=== PATIENT | female | born 1990 | race Caucasian/White ===

== ENCOUNTER 2016-07-22 11:27 | Inpatient (IN) | payer MEDICAID, OTHER ==
[2016-07-22] MEDS ORDERED: HYDROCODONE/ACETAMINOPHEN 5-325 MG TABLET PO ONE (12:09)
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
[2016-07-22] MEDS ORDERED: MORPHINE SULFATE 10 MG/ML INJ IV ONE ×2 (13:27→14:22)
[2016-07-22] MEDS ORDERED: ONDANSETRON HCL INJ/PF 4 MG/2 ML SDV IV ONE (14:22)
[2016-07-22] MEDS ORDERED: OXYCODONE-ACETAMINOPHEN 5-325 MG TABLET PO ONE (16:20)
[2016-07-22] MEDS ORDERED: DEXTROSE 40% GEL 15 GM TUBE PO PRN ×2 (17:18)
[2016-07-22] MEDS ORDERED: DEXTROSE 50%-WATER 25 GM/50 ML DISP.SYRIN IV PRN ×2 (17:18)
[2016-07-22] MEDS ORDERED: NORMAL SALINE 1000 ML 1,000 ML IV PRN (17:18)
[2016-07-22] MEDS ORDERED: GLUCAGON,HUMAN RECOMB 1 MG INJ SUBCUT PRN (17:18)
[2016-07-22] MEDS ORDERED: HYDROMORPHONE HCL INJ/PF 2 MG/ML AMPULE IV PRN (17:22)
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
[2016-07-22] MEDS ORDERED: ACETAMINOPHEN 325 MG TABLET PO PRN (20:57)
[2016-07-22] MEDS: HYDROMORPHONE HCL INJ/PF 2 MG/ML AMPULE IV PRN (21:42)
[2016-07-22] MEDS: HEPARIN SOD (PORCINE) 5,000 UNIT/ML 1 ML SYRINGE SUBCUT SCH (21:46)
[2016-07-22] MEDS ORDERED: DOCUSATE SODIUM 100 MG CAPSULE PO ONE (23:00)
[2016-07-22] MEDS: KETOROLAC TROMETHAMINE INJ/PF 30 MG/1 ML SDV IV PRN (23:10)
[2016-07-23] MEDS: HYDROMORPHONE HCL INJ/PF 2 MG/ML AMPULE IV PRN ×4 (01:14→10:35)
[2016-07-23] MEDS ORDERED: RINGERS SOLUTION,LACTATED 1,000 ML IV PRN (04:49)
[2016-07-23] MEDS: KETOROLAC TROMETHAMINE INJ/PF 30 MG/1 ML SDV IV PRN (05:11)
[2016-07-23 07:10] LABS: ABSOLUTE BASOPHILS # (AUTO) 0.1 10^3/uL (0.0-0.2); ABSOLUTE EOSINOPHILS # (AUTO) 0.1 10^3/uL (0.0-0.6); ABSOLUTE LYMPHOCYTES (AUTO) 2.1 10^3/uL (0.5-4.7); ABSOLUTE MONOCYTES (AUTO) 0.8 10^3/uL (0.1-1.4); ABSOLUTE NEUT (AUTO) 6.5 10^3/uL (1.7-8.2); BASOPHILS % (AUTO) 0.7 % (0-2); EOSINOPHILS % (AUTO) 1.1 % (0-6); HEMATOCRIT 32.9 % (36.0-47.0); HEMOGLOBIN 11.3 g/dL (12.0-15.5); LYMPHOCYTES % (AUTO) 21.6 % (13-45); MEAN CORPUSCULAR HEMOGLOBIN 28.2 pg (27.0-33.4); MEAN CORPUSCULAR HGB CONC 34.3 g/dL (32.0-36.0); MEAN CORPUSCULAR VOLUME 82 fl (80-97); MONOCYTES % (AUTO) 8.9 % (3-13); RED CELL DISTRIBUTION WIDTH 13.4 % (11.5-14.0); SEGMENTED NEUTROPHILS % (AUTO) 67.7 % (42-78); WHITE BLOOD COUNT 9.6 10^3/uL (4.0-10.5)
[2016-07-23 07:29] LABS: ANION GAP 9 (5-19); BLOOD UREA NITROGEN 15 mg/dL (7-20); CALCIUM 8.9 mg/dL (8.4-10.2); CARBON DIOXIDE 24 mmol/L (22-30); CHLORIDE 107 mmol/L (98-107); CREATININE RESULT 0.65 mg/dL (0.52-1.25); GLUCOSE 101 mg/dL (75-110); POTASSIUM 4.2 mmol/L (3.6-5.0); SODIUM 140.3 mmol/L (137-145)
[2016-07-23] MEDS ORDERED: ONDANSETRON HCL INJ/PF 4 MG/2 ML SDV ONE (08:18)
[2016-07-23] MEDS ORDERED: LIDOCAINE 2% INJ-PF (20 MG/ML) 10 ML AMPUL ONE (08:18)
[2016-07-23] MEDS ORDERED: DEXAMETHASONE SOD PHOSPHATE INJ 4 MG/1 ML VIAL ONE (08:18)
[2016-07-23] MEDS ORDERED: PHENYLEPHRINE HCL INJ/PF 10 MG/1 ML SDV ONE (08:18)
[2016-07-23] MEDS ORDERED: GLYCOPYRROLATE INJ 0.4 MG/2 ML VIAL ONE (08:18)
[2016-07-23] MEDS ORDERED: ROCURONIUM BROMIDE INJ 50 MG/5 ML VIAL IV ONE (08:18)
[2016-07-23] MEDS ORDERED: SUCCINYLCHOLINE CHLORIDE INJ 200 MG/10 ML VIAL ONE (08:18)
[2016-07-23] MEDS ORDERED: NEOSTIGMINE METHYLSULFATE 10 MG/10 ML VIAL ONE (08:18)
[2016-07-23] MEDS: DOCUSATE SODIUM 100 MG CAPSULE PO SCH ×2 (09:37→17:04)
[2016-07-23] MEDS: HEPARIN SOD (PORCINE) 5,000 UNIT/ML 1 ML SYRINGE SUBCUT SCH ×2 (09:37→21:36)
[2016-07-23 11:39] LABS: URINE BARBITURATES SCREEN NEGATIVE; URINE METHADONE SCREEN NEGATIVE; URINE PHENCYCLIDINE SCREEN NEGATIVE
[2016-07-23 11:47] LABS: URINE OPIATES LOW UNCONFIRMED POSITIVE
[2016-07-23] MEDS ORDERED: HYDROMORPHONE HCL INJ/PF 2 MG/ML AMPULE ONE (12:01)
[2016-07-23] MEDS ORDERED: PROPOFOL INJ 200 MG/20 ML VIAL IV ONE (12:02)
[2016-07-23] MEDS ORDERED: MIDAZOLAM 2 MG/2 ML INJ ONE (12:02)
[2016-07-23] MEDS ORDERED: ACETAMINOPHEN 100 ML IV ONE (12:02)
[2016-07-23] MEDS ORDERED: FENTANYL CITRATE INJ/PF 100 MCG/2 ML AMPUL ONE (12:02)
[2016-07-23] MEDS ORDERED: CEFAZOLIN INJ 1 GM VIAL ONE (13:12)
[2016-07-23] MEDS ORDERED: BUPIVACAINE HCL 0.5%-EPI 1:200000 INJ/PF 30 ML VIAL ONE (13:17)
--- NOTE | 2016-07-23 13:24 | PDOC PROGRESS REPORT ---
Subjective Progress Note for:: 07/23/16 Subjective:: still complaining of pain alert and awake for OR today Physical Exam Vital Signs: Temp Pulse Resp BP Pulse Ox 98.4 F 101 H 16 123/65 96 07/23/16 08:03 07/23/16 08:03 07/23/16 08:03 07/23/16 08:03 07/23/16 08:03 Intake & Output 07/22/16 07/23/16 07/24/16 00:59 00:59 00:59 Intake Total 480 Output Total 600 Balance -120 General appearance: PRESENT: no acute distress, well-developed, well-nourished Head exam: PRESENT: atraumatic, normocephalic Eye exam: PRESENT: conjunctiva pink, EOMI, PERRLA. ABSENT: scleral icterus Ear exam: PRESENT: normal external ear exam Mouth exam: PRESENT: moist, tongue midline Neck exam: ABSENT: carotid bruit, JVD, lymphadenopathy, thyromegaly Respiratory exam: PRESENT: clear to auscultation brenda. ABSENT: rales, rhonchi, wheezes Cardiovascular exam: PRESENT: RRR. ABSENT: diastolic murmur, rubs, systolic murmur Pulses: PRESENT: normal dorsalis pedis pul Vascular exam: PRESENT: normal capillary refill GI/Abdominal exam: PRESENT: normal bowel sounds, soft. ABSENT: distended, guarding, mass, organolmegaly, rebound, tenderness Rectal exam: PRESENT: deferred Extremities exam: PRESENT: full ROM. ABSENT: calf tenderness, clubbing, pedal edema Musculoskeletal exam: PRESENT: other - left arm in sling Neurological exam: PRESENT: alert, awake, oriented to person, oriented to place , oriented to time, oriented to situation, CN II-XII grossly intact. ABSENT: motor sensory deficit Psychiatric exam: PRESENT: appropriate affect, normal mood. ABSENT: homicidal ideation, suicidal ideation Skin exam: PRESENT: dry, intact, warm. ABSENT: cyanosis, rash Results Laboratory Results: 07/23/16 05:53 07/23/16 05:53 07/23/16 07/23/16 05:53 05:53 WBC 9.6 RBC 4.00 Hgb 11.3 L Hct 32.9 L MCV 82 MCH 28.2 MCHC 34.3 RDW 13.4 Plt Count 273 Seg Neutrophils % 67.7 Lymphocytes % 21.6 Monocytes % 8.9 Eosinophils % 1.1 Basophils % 0.7 Absolute Neutrophils 6.5 Absolute Lymphocytes 2.1 Absolute Monocytes 0.8 Absolute Eosinophils 0.1 Absolute Basophils 0.1 Sodium 140.3 Potassium 4.2 Chloride 107 Carbon Dioxide 24 Anion Gap 9 BUN 15 Creatinine 0.65 Est GFR ( Amer) > 60 Est GFR (Non-Af Amer) > 60 Glucose 101 Calcium 8.9 Impressions: Shoulder X-Ray 07/22/16 12:09 IMPRESSION: Fracture/dislocation as described. Wrist X-Ray 07/22/16 12:09 IMPRESSION: NEGATIVE STUDY OF THE LEFT WRIST. NO RADIOGRAPHIC EVIDENCE OF ACUTE INJURY. Assessment & Plan - Diagnosis (1) Fracture dislocation of left shoulder joint Is this a current diagnosis for this admission?: Yes (2) Intractable pain Is this a current diagnosis for this admission?: Yes - Time Time Spent with patient: management as per ortho will discharge patient in am if clinically stable Time Spent with patient: 25-34 minutes
[2016-07-23] MEDS ORDERED: FENTANYL CITRATE INJ/PF 100 MCG/2 ML AMPUL IV PRN ×3 (14:38)
[2016-07-23] MEDS ORDERED: PROMETHAZINE HCL INJ 25 MG/1 ML VIAL IV PRN (14:38)
[2016-07-23] MEDS ORDERED: DIPHENHYDRAMINE HCL 50 MG/ML VIAL IV PRN (14:38)
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
[2016-07-23] MEDS: OXYCODONE HCL IR 5 MG TABLET PO PRN ×3 (16:21→23:56)
[2016-07-23] MEDS ORDERED: FLUCONAZOLE 100 MG TABLET PO ONE (18:41)
[2016-07-23] MEDS ORDERED: FLUCONAZOLE 100 MG TABLET ONE (21:09)
[2016-07-23] MEDS: IBUPROFEN 800 MG TABLET PO PRN (21:23)
[2016-07-23] MEDS: CEFAZOLIN 2 GM/D5W RTU 2 GM/50 ML RTUPB IV SCH (21:32)
[2016-07-23] MEDS ORDERED: ZOLPIDEM TARTRATE 5 MG TABLET PO SCH (22:00)
[2016-07-24] MEDS: OXYCODONE HCL IR 5 MG TABLET PO PRN ×2 (04:24→08:34)
[2016-07-24] MEDS: CEFAZOLIN 2 GM/D5W RTU 2 GM/50 ML RTUPB IV SCH (05:59)
[2016-07-24] MEDS: IBUPROFEN 800 MG TABLET PO PRN (06:04)
[2016-07-24 06:51] LABS: HEMATOCRIT 31.1 % (36.0-47.0); HEMOGLOBIN 10.5 g/dL (12.0-15.5); HGB HCT DIFFERENCE 0.4; MEAN CORPUSCULAR HGB CONC 33.9 g/dL (32.0-36.0); MEAN CORPUSCULAR VOLUME 83 fl (80-97); RED BLOOD COUNT 3.77 10^6/uL (3.72-5.28); RED CELL DISTRIBUTION WIDTH 13.4 % (11.5-14.0); WHITE BLOOD COUNT 14.5 10^3/uL (4.0-10.5)
[2016-07-24 07:03] LABS: ANION GAP 12 (5-19); BLOOD UREA NITROGEN 10 mg/dL (7-20); CALCIUM 9.3 mg/dL (8.4-10.2); CARBON DIOXIDE 23 mmol/L (22-30); CHLORIDE 107 mmol/L (98-107); CREATININE RESULT 0.71 mg/dL (0.52-1.25); GLUCOSE 106 mg/dL (75-110); POTASSIUM 4.4 mmol/L (3.6-5.0); SODIUM 142.1 mmol/L (137-145)
[2016-07-24 08:56] VITALS: BP 118/60
[2016-07-24] MEDS: DOCUSATE SODIUM 100 MG CAPSULE PO SCH (11:17)
[2016-07-24] MEDS: HEPARIN SOD (PORCINE) 5,000 UNIT/ML 1 ML SYRINGE SUBCUT SCH (11:19)
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
--- NOTE | 2016-08-18 07:54 | Operative Report ---
Operative Report DATE OF SURGERY: 07/23/16 PREOPERATIVE DIAGNOSIS: Displaced 2 part proximal humerus fracture POSTOPERATIVE DIAGNOSIS: Same OPERATION: ORIF of left proximal humerus fracture SURGEON: LASHAE MCCARTHY ANESTHESIA: GA TISSUE REMOVED OR ALTERED: None COMPLICATIONS: None ESTIMATED BLOOD LOSS: 50 mL INTRAOPERATIVE FINDINGS: As above PROCEDURE: Patient received 2 g of Ancef in the preop holding area. She was brought to the operating room where she was induced and intubated in a supine position. Patient was placed in the lazy beachchair position in the left upper extremity was prepped and draped in a normal sterile surgical fashion. Timeout was done identifying the left shoulder as the correct site. Marcaine with epinephrine was injected in the anticipated deltopectoral approach. Template was used to do skin incision. Electrocautery was used to do hemostasis. Quickly was able to expose the deltopectoral interval which I then freed the cephalic vein and retracted it laterally with the deltoid. Retractor was used and exposed the conjoined tendon which was retracted medially to protect the muscular cutaneous nerve. Immediately inside the subscapularis tendon. Fracture site was visualized on the tear in the muscle distal to it. I was able to expose the distal fragment which was the proximal aspect of the shaft of the humerus. I used C-arm to take pictures and confirm placement. I used a lobster claw to reduce to 2 fragments because it was oblique fragment I was able to interdigitate fragments together. I placed the plate and make sure was a proper height and distance on the lateral aspect of the humerus. I proceeded first to secure the plate to the proximal fragment with a couple K wires and then reduced the shaft to the fragment and plate holding the plate and fragment with a lobster claw. Was able to place the screw in the oblong hole on the shaft as well as a couple screws in the head at this point I removed and readjusted the clamp. I proceeded then to put several screws in the proximal head and took several x-rays with different rotation of the humerus to make sure was not piercing the subchondral bone or glenohumeral joint. I measured appropriately and placed the screws. I did same procedure of drilling and measuring on the shaft. Pictures were taken showing proper screw length and fixation. The reduction was acceptable bone was opposed. Also satisfied with my fixation I removed the clamp and then placed the arm in range of motion. There was no motion at the fracture site. At this point I used both irrigation to clean the wound. Removed the retractors and then to care of any active bleeders. Proceeded then to approximate the deltopectoral interval with 2 interrupted single stitches using 0 Vicryl. And then closed the subcutaneous tissue with 0 Vicryl and 2-0 Vicryl for dermis and tramaine for skin. Applied Xeroform to the incision 4 x 4 dressing and then secured with Medipore tape. Patient was then undraped and placed in a sling. She was placed in supine position where she was successfully extubated and sent to PACU in a stable condition.
== END 2016-07-24 12:20 | disposition home or self-care (01) | DRG 494 ==
LOC: ER 11:27 → EH 16:33 → UNDOADMIN 16:33 → EH 17:19 → 2N 20:12
PROVIDERS: ADMIT Emergency Medicine; ATTEND Emergency Medicine
PROC: 0PSD04Z Reposition Left Humeral Head with Internal Fixation Device, Open Approach (ICD-10-PCS; principal; 2016-07-23 11:15)
DX: S42.222A 2-part displaced fracture of surgical neck of left humerus, initial encounter for closed fracture (principal); G89.11 Acute pain due to trauma; V48.1XXA Car passenger injured in noncollision transport accident in nontraffic accident, initial encounter; F17.210 Nicotine dependence, cigarettes, uncomplicated; Z82.61 Family history of arthritis; Z83.49 Family history of other endocrine, nutritional and metabolic diseases
CPT/HCPCS: 01740; 36415; 80048; 80307; 85025; 85027; 96374; 96375; 96376; 99284; C1713; J0131; J0330; J0690; J1100; J1170; J1644; J1885; J2250; J2270; J2370; J2405; J2704; J3010; J3490; J7030; L3650

== ENCOUNTER 2018-03-08 09:19 | Emergency (ER) | payer MEDICAID ==
[2018-03-08 09:24] VITALS: BP 121/70
--- NOTE | 2018-03-08 10:14 | ER Document Report ---
ED Respiratory Problem - General Chief Complaint: Cough Stated Complaint: COUGH, RIB PAIN Time Seen by Provider: 03/08/18 09:32 Mode of Arrival: Ambulatory Information source: Patient Notes: 27-year-old female presented to ED for cough cold congestion times a week. She states she been taken medicines at home with no relief. She states she has right-sided rib pain due to the coughing. She states her cough has been productive with green sputum. TRAVEL OUTSIDE OF THE [place] IN LAST 30 DAYS: No - HPI Patient complains to provider of: Cough Onset: Last week Duration: Continuous Initiating Event: URI Quality of pain: Sharp Severity: Moderate Pain Level: 3 Context: Smoker Short of Breath: Mild Chest pain/discomfort: Right, Worse with deep breaths Cough: Productive Sputum amount: Small Sputum color: Green Sputum consistency: Thick Associated symptoms: Congestion, Cough, PND, Runny nose, Sinus pain/pressure Similar symptoms previously: Yes Recently seen / treated by doctor: No - Related Data Allergies/Adverse Reactions: No Known Allergies Allergy (Verified 07/22/16 11:52) Past Medical History - General Information source: Patient - Social History Smoking Status: Current Every Day Smoker Cigarette use (# per day): Yes - 1/3 Chew tobacco use (# tins/day): No Smoking Education Provided: Yes Frequency of alcohol use: None Drug Abuse: None Lives with: Family Family History: Arthritis, Thyroid Disfunction Patient has suicidal ideation: No Patient has homicidal ideation: No - Past Medical History Cardiac Medical History: Reports: None Pulmonary Medical History: Reports: Hx Bronchitis EENT Medical History: Reports: None Neurological Medical History: Reports: None Endocrine Medical History: Reports: None Renal/ Medical History: Reports: None Malignancy Medical History: Reports: None GI Medical History: Reports: None Musculoskeletal Medical History: Reports Hx Musculoskeletal Trauma Skin Medical History: Reports None Psychiatric Medical History: Reports: None Traumatic Medical History: Reports: None Infectious Medical History: Reports: None Past Surgical History: Reports: Hx Orthopedic Surgery - right shoulder - Immunizations Immunizations up to date: No Hx Diphtheria, Pertussis, Tetanus Vaccination: No Review of Systems - Review of Systems Constitutional: No symptoms reported EENT: Nose discharge, Sinus discharge, Throat pain Cardiovascular: No symptoms reported Respiratory: Cough, Hurts to breathe Gastrointestinal: No symptoms reported Genitourinary: No symptoms reported Female Genitourinary: No symptoms reported Musculoskeletal: No symptoms reported Skin: No symptoms reported Hematologic/Lymphatic: No symptoms reported Neurological/Psychological: No symptoms reported -: Yes All other systems reviewed and negative Physical Exam - Vital signs Vitals: Temp Pulse Resp BP Pulse Ox 98.6 F 90 18 121/70 99 03/08/18 09:22 03/08/18 09:22 03/08/18 09:22 03/08/18 09:22 03/08/18 09:22 Interpretation: Normal - General General appearance: Appears well, Alert - HEENT Head: Normocephalic, Atraumatic Eyes: Normal Pupils: PERRL Ears: Normal External canal: Normal Tympanic membrane: Normal Sinus: Normal Nasal: Purulent discharge, Swelling Mouth/Lips: Normal Mucous membranes: Normal Pharynx: Erythema, Post nasal drainage. No: Exudate, Retropharyngeal abscess, Tonsillar hypertrophy, Uvular edema, Potential airway comprom. Neck: Anterior cervical chain - Respiratory Respiratory status: No respiratory distress Chest status: Nontender Breath sounds: Nonproductive cough, Rales Chest palpation: Normal - Cardiovascular Rhythm: Regular Heart sounds: Normal auscultation Murmur: No - Abdominal Inspection: Normal Distension: No distension Bowel sounds: Normal Tenderness: Nontender Organomegaly: No organomegaly - Back Back: Normal, Nontender - Extremities General upper extremity: Normal inspection, Nontender, Normal color, Normal ROM , Normal temperature General lower extremity: Normal inspection, Nontender, Normal color, Normal ROM , Normal temperature, Normal weight bearing. No: Jessica's sign - Neurological Neuro grossly intact: Yes Cognition: Normal Orientation: AAOx4 Brooklynn Coma Scale Eye Opening: Spontaneous Valentine Coma Scale Verbal: Oriented Brooklynn Coma Scale Motor: Obeys Commands Brooklynn Coma Scale Total: 15 Speech: Normal Motor strength normal: LUE, RUE, LLE, RLE Sensory: Normal - Psychological Associated symptoms: Normal affect, Normal mood - Skin Skin Temperature: Warm Skin Moisture: Dry Skin Color: Normal Course - Re-evaluation Re-evalutation: 03/08/18 22:27 X-ray discussed with patient and written report of x-ray given to patient. Patient was a prescription for amoxicillin and instructed to follow-up with her primary doctor telephone today and schedule a follow-up appointment. Patient instructed to return to the ED for any increase in cough congestion or fever. - Vital Signs Vital signs: Temp Pulse Resp BP Pulse Ox 98.6 F 90 18 121/70 99 03/08/18 09:22 03/08/18 09:22 03/08/18 09:22 03/08/18 09:22 03/08/18 09:22 - Diagnostic Test Radiology reviewed: Image reviewed, Reports reviewed Discharge - Discharge Clinical Impression: Right lower lobe pneumonia Qualifiers: Pneumonia type: due to unspecified organism Qualified Code(s): J18.1 - Lobar pneumonia, unspecified organism Condition: Stable Disposition: HOME, SELF-CARE Additional Instructions: PNEUMONIA: Your examination indicates that you have pneumonia. This is an infection of the lung tissue, usually caused by bacteria or a virus. Symptoms include cough, fever, shaking chills, chest pain, shortness of breath, and coughing up bloody sputum. Treatment for bacterial pneumonia includes rest, antibiotics for 10 to 14 days, increasing your clear liquid intake, a cool mist humidifier at your bedside, and fever medication. Often, a repeat chest X-ray is performed in a few weeks--even if you feel better--to ascertain whether the infection has completely resolved and no underlying lung problem is present. You should call the physician if you develop persistent vomiting, high fever that does not respond to fever medication, increasing shortness of breath , confusion, or lethargy. Also, failure to improve within two to three days is an indication for re-examination. AMOXICILLIN: Amoxicillin is a member of the penicillin family. It covers the germs likely to cause ear, bronchial, and urinary infections better than plain penicillin. Amoxicillin can be taken without regard to meals. Nausea after taking the medication is rare, but can occur. Diarrhea can occur, particularly in small children. Vaginal yeast infections and oral thrush in infants are also common. Contact your physician if these problems occur. Allergy to penicillins is common. If you have had an allergic reaction to any drug of the penicillin family, you should never take any other penicillin. Notify your doctor at once if you develop hives, itching, swelling, faintness, or shortness of breath. Less serious side effects can include nausea or diarrhea. USE OF ACETAMINOPHEN (Tylenol): Acetaminophen may be taken for pain relief or fever control. It's much safer than aspirin, offering a wider range of "safe" dosages. It is safe during . Some brand names are Tylenol, Panadol, Datril, Anacin 3, Tempra, and Liquiprin. Acetaminophen can be repeated every four hours. The following are maximum recommended dosages: WEIGHT Dose Drops Elixir Chewable( 80mg) (LBS.) drprs=droppers tsp=teaspoon 6 40 mg 0.4 ml (1/2) 6-11 80 mg 0.8 ml (full) tsp 1 tab 12-16 120 mg 1 1/2 drprs 3/4 tsp 1 1/2 tabs 17-23 160 mg 2 drprs 1 tsp 2 tabs 24-30 240 mg 3 drprs 1 1/2 tsp 3 tabs 30-35 320 mg 2 tsp 4 tabs 36-41 360 mg 2 1/4 tsp 4 1/2 tabs 42-47 400 mg 2 1/2 tsp 5 tabs 48-53 480 mg 3 tsp 6 tabs 54-59 520 mg 3 1/4 tsp 6 1/2 tabs 60-64 560 mg 3 1/2 tsp 7 tabs 65-70 600 mg 3 3/4 tsp 7 1/2 tabs 71-76 640 mg 4 tsp 8 tabs 77-82 720 mg 4 1/2 tsp 9 tabs 83-88 800 mg 5 tsp 10 tabs >89 pounds or adults 650 mg to 900 mg Acetaminophen can be repeated every four hours. Maximum dose not to exceed 4000 mg a day. These maximum recommended dosages are slightly higher than the dosages written on the product container, but these dosages are very safe and below the toxic dosage for acetaminophen. FOLLOW-UP CARE: If you have been referred to a physician for follow-up care, call the physician s office for an appointment as you were instructed or within the next two days. If you experience worsening or a significant change in your symptoms, notify the physician immediately or return to the Emergency Department at any time for re-evaluation. Prescriptions: Amoxicillin Trihydrate [Amoxil 875 mg Tablet] 1 tab PO BID #20 tablet Forms: Smoking Cessation Education Referrals: ELVA HUNG DO [Primary Care Provider] - Follow up in 3-5 days
--- NOTE | 2018-03-08 10:18 | RADIOLOGY REPORT (SQ) ---
EXAM DESCRIPTION: CHEST 2 VIEWS COMPLETED DATE/TIME: 03/08/2018 10:04 am REASON FOR STUDY: cough congestion COMPARISON: None. EXAM PARAMETERS: NUMBER OF VIEWS: two views TECHNIQUE: Digital Frontal and Lateral radiographic views of the chest acquired. RADIATION DOSE: NA LIMITATIONS: none FINDINGS: LUNGS AND PLEURA: Patchy airspace disease right lower lung, suggest infiltrate. The left lung is clear. No pneumothorax or pleural effusion. MEDIASTINUM AND HILAR STRUCTURES: No masses or contour abnormalities. HEART AND VASCULAR STRUCTURES: Heart normal size. No evidence for failure. BONES: No acute findings. HARDWARE: None. OTHER: Partially visualized internal fixation with hardware left proximal humerus fracture. IMPRESSION: 1. Patchy right lower airspace disease, suggest infiltrate. COMMENT: 1. The results of this examination were discussed with the emergency department associate business analyst von finney 03/08/2018 at 10:08 hours. TECHNICAL DOCUMENTATION: JOB ID: [id number] [employer]- All Rights Reserved Reading location - IP/workstation name: [email or web address]
== END 2018-03-08 10:28 | disposition home or self-care (01) ==
LOC: ER 09:19
DX: J18.1 Lobar pneumonia, unspecified organism (principal); R05 Cough; R07.81 Pleurodynia; R09.82 Postnasal drip; R07.0 Pain in throat; J34.89 Other specified disorders of nose and nasal sinuses; R07.1 Chest pain on breathing; R09.89 Other specified symptoms and signs involving the circulatory and respiratory systems; F17.210 Nicotine dependence, cigarettes, uncomplicated
CPT/HCPCS: 71046; 87070; 87880; 99283

== ENCOUNTER → 2018-09-14 | Outpatient (CLI) | payer MEDICAID ==
--- NOTE | 2018-09-14 10:31 | WOMENS IMAGING REPORT ---
EXAM DESCRIPTION: TRANSVAGINAL ULTRASOUND COMPLETED DATE/TIME: 09/14/2018 9:08 am REASON FOR STUDY: N94.10 UNSEPCIFIED DYSPAREUNIA N94.10 UNSPECIFIED DYSPAREUNIA LMP: Current. COMPARISON: None. TECHNIQUE: Dynamic and static grayscale images acquired of the pelvis via transvaginal approach and recorded on PACS. Additional selected color Doppler and spectral images recorded. LIMITATIONS: None. FINDINGS: UTERUS: Contour normal. No mass. ENDOMETRIAL STRIPE: No focal or generalized thickening. No masses. CERVIX: Not well seen. RIGHT OVARY AND DOPPLER: Normal size. No worrisome masses. Normal arterial vascular flow without evid ence for torsion. LEFT OVARY AND DOPPLER: Normal size. No worrisome masses. Normal arterial vascular flow without evide nce for torsion. FREE FLUID: None noted. OTHER: No other significant finding. MEASUREMENTS: UTERUS: 8.6 x 4.7 x 6 cm. ENDOMETRIAL STRIPE: 10 mm. RIGHT OVARY: 3.8 x 2.7 x 3.4 cm. LEFT OVARY: 3.4 x 2.4 x 3 cm. IMPRESSION: NORMAL TRANSVAGINAL PELVIC ULTRASOUND. TECHNICAL DOCUMENTATION: JOB ID: [id number] [employer]- All Rights Reserved Rev-08/11 Reading location - IP/workstation name: [email or web address]
== END ==
LOC: WI 08:37
PROVIDERS: ATTEND Nurse Practitioner Family
DX: N94.10 Unspecified dyspareunia (principal)
CPT/HCPCS: 76830

== ENCOUNTER 2019-01-19 10:46 | Emergency (ER) | payer MEDICAID ==
[2019-01-19] MEDS ORDERED: ONDANSETRON HCL INJ/PF 4 MG/2 ML SDV IV ONE (10:51)
[2019-01-19] MEDS ORDERED: NORMAL SALINE 1000 ML 1,000 ML IV ONE (10:51)
--- NOTE | 2019-01-19 10:52 | ER Document Report ---
ED Medical Screen (RME) - General Stated Complaint: ABDOMINAL PAIN/VOMITING Time Seen by Provider: 01/19/19 10:49 Primary Care Provider: TRICIA ROCHA FNP-C [Primary Care Provider] - Follow up as needed Information source: Patient Notes: Patient presents complaining of abdominal pain with nausea and vomiting that started yesterday. Patient reports right lower quadrant tenderness that radiates to her back. Patient denies any urinary symptoms. I have greeted and performed a rapid initial assessment of this patient. A comprehensive ED assessment and evaluation of the patient, analysis of test results and completion of the medical decision making process will be conducted by additional ED providers. TRAVEL OUTSIDE OF THE [place] IN LAST 30 DAYS: No - Related Data Allergies/Adverse Reactions: No Known Allergies Allergy (Verified 07/22/16 11:52) Past Medical History Pulmonary Medical History: Reports: Hx Bronchitis Renal/ Medical History: Denies: Hx Peritoneal Dialysis Musculoskeltal Medical History: Reports Hx Musculoskeletal Trauma Past Surgical History: Reports: Hx Orthopedic Surgery - right shoulder - Immunizations Immunizations up to date: No Hx Diphtheria, Pertussis, Tetanus Vaccination: No Physical Exam - Vital signs Vitals: Temp Pulse Resp BP Pulse Ox 97.8 F 54 L 16 100/61 100 01/19/19 10:50 01/19/19 10:50 01/19/19 10:50 01/19/19 10:50 01/19/19 10:50 - Abdominal Tenderness: Tender - Right lower quadrant Course - Vital Signs Vital signs: Temp Pulse Resp BP Pulse Ox 97.8 F 54 L 16 100/61 100 01/19/19 10:50 01/19/19 10:50 01/19/19 10:50 01/19/19 10:50 01/19/19 10:50 Doctor's Discharge - Discharge Referrals: TRICIA ROCHA FNP-C [Primary Care Provider] - Follow up as needed
[2019-01-19 11:34] LABS: ABSOLUTE LYMPHOCYTES (AUTO) 0.8 10^3/uL (0.5-4.7); ABSOLUTE MONOCYTES (AUTO) 0.5 10^3/uL (0.1-1.4); ABSOLUTE NEUT (AUTO) 5.1 10^3/uL (1.7-8.2); BASOPHILS % (AUTO) 0.4 % (0-2); HEMATOCRIT 40.9 % (36.0-47.0); HEMOGLOBIN 14.3 g/dL (12.0-15.5); LYMPHOCYTES % (AUTO) 11.9 % (13-45); MEAN CORPUSCULAR HEMOGLOBIN 29.2 pg (27.0-33.4); MEAN CORPUSCULAR HGB CONC 34.9 g/dL (32.0-36.0); MEAN CORPUSCULAR VOLUME 84 fl (80-97); MONOCYTES % (AUTO) 8.3 % (3-13); PLATELET COUNT 293 10^3/uL (150-450); RED BLOOD COUNT 4.88 10^6/uL (3.72-5.28); SEGMENTED NEUTROPHILS % (AUTO) 79.4 % (42-78); TOTAL CELLS COUNTED % (AUTO) 100 %; WHITE BLOOD COUNT 6.4 10^3/uL (4.0-10.5)
[2019-01-19 11:57] LABS: ALBUMIN 4.8 g/dL (3.5-5.0); ALKALINE PHOSPHATASE 47 U/L (38-126); ANION GAP 11 (5-19); ASPARTATE AMINO TRANSFERASE 20 U/L (14-36); BILIRUBIN,DIRECT 0.1 mg/dL (0.0-0.4); BILIRUBIN,TOTAL 1.3 mg/dL (0.2-1.3); BLOOD UREA NITROGEN 24 mg/dL (7-20); CALCIUM 9.7 mg/dL (8.4-10.2); CARBON DIOXIDE 22 mmol/L (22-30); CHLORIDE 105 mmol/L (98-107); GLUCOSE 104 mg/dL (75-110); POTASSIUM 4.3 mmol/L (3.6-5.0); TOTAL PROTEIN 7.8 g/dL (6.3-8.2)
--- NOTE | 2019-01-19 12:29 | ER Document Report ---
ED General - General Chief Complaint: Nausea/Vomiting Stated Complaint: ABDOMINAL PAIN/VOMITING Time Seen by Provider: 01/19/19 10:49 Primary Care Provider: TRICIA ROCHA FNP-C [Primary Care Provider] - Follow up as needed TRAVEL OUTSIDE OF THE [place] IN LAST 30 DAYS: No - HPI Notes: Patient is a 28-year-old female who presents emergency department for evaluation. She states yesterday she had heartburn all day. During the night she started developing a pressure type sensation of the right side of her abdomen. She states she had nausea and vomiting throughout the night. She denies any bloody or bilious emesis. She states she had a normal bowel movement earlier today. She does have constipation issues. She has had some chills but no robert fevers to her knowledge. She denies any dysuria. No hematuria or urinary symptoms at all. She denies any vaginal discharge. - Related Data Allergies/Adverse Reactions: No Known Allergies Allergy (Verified 07/22/16 11:52) Home Medications: Admits to [facility] for chronic shoulder pain Past Medical History - General Information source: Patient - Social History Smoking Status: Current Every Day Smoker Family History: Arthritis, Thyroid Disfunction Patient has suicidal ideation: No Patient has homicidal ideation: No Pulmonary Medical History: Reports: Hx Bronchitis, Hx Pneumonia Renal/ Medical History: Denies: Hx Peritoneal Dialysis Musculoskeletal Medical History: Reports Hx Musculoskeletal Trauma Past Surgical History: Reports: Hx Orthopedic Surgery - right and left shoulder - Immunizations Immunizations up to date: No Hx Diphtheria, Pertussis, Tetanus Vaccination: No Review of Systems - Review of Systems Constitutional: See HPI EENT: No symptoms reported Cardiovascular: No symptoms reported Respiratory: See HPI Gastrointestinal: See HPI Genitourinary: No symptoms reported Female Genitourinary: No symptoms reported Musculoskeletal: No symptoms reported Skin: No symptoms reported Neurological/Psychological: No symptoms reported Physical Exam - Vital signs Vitals: Temp Pulse Resp BP Pulse Ox 97.8 F 54 L 16 100/61 100 01/19/19 10:50 01/19/19 10:50 01/19/19 10:50 01/19/19 10:50 01/19/19 10:50 - Notes Notes: This is a 28-year-old female who appears older than her stated age, no acute distress. Vital signs reviewed, please refer to chart. Head is normocephalic, a traumatic. Pupils equal round, reactive to light. Neck is supple without meningismus. Heart is regular rate and rhythm. Lungs are clear to auscultation bilaterally. Abdomen is scaphoid, diffuse tenderness on the right side without rebound or guarding, normoactive bowel sounds throughout. Extremities without cyanosis, clubbing. Posterior calves are nontender. Peripheral pulses are equal. Skin is warm and dry. Patient is awake, alert, neurological exam is nonfocal. Course - Re-evaluation Re-evalutation: 01/19/19 15:04 Patient presents emergency department for evaluation of nausea, vomiting, chills, constipation. My suspicion is that she is developed early gastritis, developing into a potential gastroenteritis. She has a history of constipation, states her stool was firm this morning. Vital signs are unremarkable. She was given Zofran, continue to have vomiting. She was offered IV Phenergan, which she refused. It was offered for her IM. She states Phenergan does not work for her, she will usually has at home. Otherwise, she is not significantly dehydrated. Her vitals are normal. Her chest x-ray is normal. She is influenza negative. She is encouraged to keep taking small, frequent sips of fluids. We will have her follow-up with primary care. We will send her home with Michael ALDANA. She is to return to the ED with worsening or new concerning symptoms of any sort. - Vital Signs Vital signs: Temp Pulse Resp BP Pulse Ox 97.8 F 54 L 16 100/61 100 01/19/19 10:50 01/19/19 10:50 01/19/19 10:50 01/19/19 10:50 01/19/19 10:50 - Laboratory Result Diagrams: 01/19/19 11:20 01/19/19 11:20 Laboratory results interpreted by me: 01/19/19 01/19/19 01/19/19 11:20 11:20 12:37 Lymph % (Auto) 11.9 L Seg Neutrophils % 79.4 H BUN 24 H Urine Protein 30 H Urine Ketones 80 H Urine Bilirubin SMALL H Urine Urobilinogen 2.0 H - Diagnostic Test Radiology reviewed: Reports reviewed Radiology results interpreted by me: 01/19/19 15:03 Chest X-Ray 01/19/19 12:26 IMPRESSION: 1. No acute abnormality of the lungs. 2. Nonobstructive pattern of bowel gas with gas present to the rectum. Moderate burden of stool in the colon. No free air. KUB X-Ray 01/19/19 12:26 IMPRESSION: 1. No acute abnormality of the lungs. 2. Nonobstructive pattern of bowel gas with gas present to the rectum. Moderate burden of stool in the colon. No free air. Discharge - Discharge Clinical Impression: Right sided abdominal pain Nausea and vomiting Qualifiers: Vomiting type: unspecified Vomiting Intractability: non-intractable Qualified Code(s): R11.2 - Nausea with vomiting, unspecified Condition: Stable Disposition: HOME, SELF-CARE Instructions: Abdominal Pain ([facility]), Antinausea Medication ([facility]), Vomiting ([facility]) Additional Instructions: Stay hydrated with small, frequent sips of fluids. Phenergan or Zofran as needed for nausea. Follow-up with primary care this week. Return to the ED with worsening or new concerning symptoms of any sort. Referrals: TRICIA ROCHA FNP-C [Primary Care Provider] - Follow up as needed
[2019-01-19] MEDS ORDERED: KETOROLAC TROMETHAMINE INJ/PF 30 MG/1 ML SDV IV ONE (12:47)
[2019-01-19 13:02] LABS: APPEARANCE,URINE SLIGHTLY-CLOUDY; BILIRUBIN,URINE SMALL (NEGATIVE); COLOR,URINE AMBER; GLUCOSE, URINE NEGATIVE (NEGATIVE); KETONES,URINE 80 mg/dL (NEGATIVE); PROTEIN,URINE 30 mg/dL (NEGATIVE); URINE SPECIFIC GRAVITY 1.032
--- NOTE | 2019-01-19 13:09 | RADIOLOGY REPORT (SQ) ---
EXAM DESCRIPTION: CHEST 2 VIEWS; KUB/ABDOMEN (SINGLE VIEW) COMPLETED DATE/TIME: 01/19/2019 1:00 pm REASON FOR STUDY: cough, vomiting; abdominal pain COMPARISON: 03/08/2018 EXAM PARAMETERS: NUMBER OF VIEWS: two views of the chest, single view of the abdomen TECHNIQUE: Digital Frontal and Lateral radiographic views of the chest acquired. Single supine abdom inal radiograph RADIATION DOSE: NA LIMITATIONS: none FINDINGS: LUNGS AND PLEURA: No opacities, masses or pneumothorax. No pleural effusion. MEDIASTINUM AND HILAR STRUCTURES: No masses or contour abnormalities. HEART AND VASCULAR STRUCTURES: Heart normal size. No evidence for failure. BONES: No acute findings. HARDWARE: None in the chest. ABDOMEN: Nonobstructive pattern of bowel gas with gas present to the rectum. Moderate burden of stoo l in the colon. No free air. IMPRESSION: 1. No acute abnormality of the lungs. 2. Nonobstructive pattern of bowel gas with gas present to the rectum. Moderate burden of stool in t he colon. No free air. TECHNICAL DOCUMENTATION: JOB ID: [id number] [employer]- All Rights Reserved Reading location - IP/workstation name: [email or web address]
--- NOTE | 2019-01-19 13:09 | RADIOLOGY REPORT (SQ) ---
EXAM DESCRIPTION: CHEST 2 VIEWS; KUB/ABDOMEN (SINGLE VIEW) COMPLETED DATE/TIME: 01/19/2019 1:00 pm REASON FOR STUDY: cough, vomiting; abdominal pain COMPARISON: 03/08/2018 EXAM PARAMETERS: NUMBER OF VIEWS: two views of the chest, single view of the abdomen TECHNIQUE: Digital Frontal and Lateral radiographic views of the chest acquired. Single supine abdom inal radiograph RADIATION DOSE: NA LIMITATIONS: none FINDINGS: LUNGS AND PLEURA: No opacities, masses or pneumothorax. No pleural effusion. MEDIASTINUM AND HILAR STRUCTURES: No masses or contour abnormalities. HEART AND VASCULAR STRUCTURES: Heart normal size. No evidence for failure. BONES: No acute findings. HARDWARE: None in the chest. ABDOMEN: Nonobstructive pattern of bowel gas with gas present to the rectum. Moderate burden of stoo l in the colon. No free air. IMPRESSION: 1. No acute abnormality of the lungs. 2. Nonobstructive pattern of bowel gas with gas present to the rectum. Moderate burden of stool in t he colon. No free air. TECHNICAL DOCUMENTATION: JOB ID: [id number] [employer]- All Rights Reserved Reading location - IP/workstation name: [email or web address]
[2019-01-19 13:18] LABS: A TYPE INFLUENZA AG NEGATIVE (NEGATIVE); B INFLUENZA AG NEGATIVE (NEGATIVE)
[2019-01-19] MEDS ORDERED: PROMETHAZINE HCL INJ 25 MG/1 ML VIAL IV ONE (14:41)
[2019-01-19] MEDS ORDERED: NORMAL SALINE 500 ML IV ONE (14:41)
[2019-01-19] MEDS ORDERED: ONDANSETRON ODT 4 MG TAB (6 TAB/ER DISP) PO PRN (15:09)
[2019-01-19 16:14] VITALS: BP 110/63
== END 2019-01-19 16:17 | disposition home or self-care (01) ==
LOC: ER 10:46
DX: R10.9 Unspecified abdominal pain (principal); R11.2 Nausea with vomiting, unspecified; R12 Heartburn; F17.200 Nicotine dependence, unspecified, uncomplicated
CPT/HCPCS: 36415; 84703; 85025; 80053; 81001; 87804; 71046; 74018; J1885; J2550; J2405; J7030; J7040; 96361; 96374; 96375; 99284

== ENCOUNTER → 2019-08-20 | Outpatient (CLI) | payer MEDICAID ==
--- NOTE | 2019-08-20 16:48 | RADIOLOGY REPORT (SQ) ---
EXAM DESCRIPTION: FOOT RIGHT COMPLETE IMAGES COMPLETED DATE/TIME: 08/20/2019 4:15 pm REASON FOR STUDY: UNSPECIFIED INJURY OF RIGHT FOOT, INITIAL ENCOUNTER M25.512 PAIN IN LEFT SHOULDER S99.921A UNSPECIFIED INJURY OF RIGHT FOOT, INITIAL ENCOUNTER COMPARISON: None. NUMBER OF VIEWS: Three views. TECHNIQUE: AP, lateral and oblique radiographic images acquired of the right foot. LIMITATIONS: None. FINDINGS: MINERALIZATION: Normal. BONES: No acute fracture or dislocation. JOINTS: The normal tarsometatarsal alignment is preserved. SOFT TISSUES: No soft tissue swelling or radiopaque foreign body. OTHER: No other finding. IMPRESSION: No acute osseous abnormality of the right foot. TECHNICAL DOCUMENTATION: JOB ID: [id number] 2010 [employer]- All Rights Reserved Reading location - IP/workstation name: [email or web address]
--- NOTE | 2019-08-20 16:50 | RADIOLOGY REPORT (SQ) ---
EXAM DESCRIPTION: ELBOW LEFT >2 VIEWS IMAGES COMPLETED DATE/TIME: 08/20/2019 4:38 pm REASON FOR STUDY: PAIN IN LEFT ELBOW M25.512 PAIN IN LEFT SHOULDER S99.921A UNSPECIFIED INJURY OF RIGHT FOOT, INITIAL ENCOUNTER M25.522 PAIN IN LEFT ELBOW COMPARISON: None. NUMBER OF VIEWS: Four views. TECHNIQUE: AP, lateral, and both oblique radiographic images acquired of the left elbow. LIMITATIONS: None. FINDINGS: MINERALIZATION: Normal. BONES: No acute fracture or dislocation. No worrisome bone lesions. JOINT: No effusion. SOFT TISSUES: No soft tissue swelling. No foreign body. OTHER: No other significant finding. IMPRESSION: NEGATIVE STUDY OF THE LEFT ELBOW. NO RADIOGRAPHIC EVIDENCE OF ACUTE INJURY. TECHNICAL DOCUMENTATION: JOB ID: [id number] 2010 [employer]- All Rights Reserved Reading location - IP/workstation name: [email or web address]
--- NOTE | 2019-08-20 16:53 | RADIOLOGY REPORT (SQ) ---
EXAM DESCRIPTION: SHOULDER LEFT 2 OR MORE VIEWS IMAGES COMPLETED DATE/TIME: 08/20/2019 4:15 pm REASON FOR STUDY: PAIN IN LEFT SHOULDER M25.512 PAIN IN LEFT SHOULDER S99.921A UNSPECIFIED INJURY OF RIGHT FOOT, INITIAL ENCOUNTER COMPARISON: None. NUMBER OF VIEWS: Three views. TECHNIQUE: Internal rotation, external rotation, and Y view images acquired of the left shoulder. LIMITATIONS: None. FINDINGS: MINERALIZATION: Normal. BONES: Status post open reduction internal fixation of a fracture of the proximal left humerus with p lacement of a fixation plate and multiple cortical screws ; the periprosthetic lucencies around sever al of the screws could represent aseptic loosening. The alignment of the fracture is unchanged josé miguel red to 01/19/2019. There is no acute fracture. JOINTS: No dislocation. VISUALIZED LUNGS AND RIBS: No pneumothorax or rib fracture. SOFT TISSUES: No radiopaque foreign body. OTHER: No other finding. IMPRESSION: Status post open reduction internal fixation of a fracture of the proximal left humerus with placement of a fixation plate and multiple cortical screws ; the periprosthetic lucencies around several of the screws could represent aseptic loosening. The alignment of the fracture is unchanged compared to 01/19/2019. There is no acute fracture. TECHNICAL DOCUMENTATION: JOB ID: [id number] 2010 [employer]- All Rights Reserved Reading location - IP/workstation name: [email or web address]
== END ==
LOC: OD 15:54
PROVIDERS: ATTEND Nurse Practitioner Family
DX: M25.522 Pain in left elbow (principal); M25.512 Pain in left shoulder; S99.921A Unspecified injury of right foot, initial encounter; X58.XXXA Exposure to other specified factors, initial encounter; Y93.9 Activity, unspecified; Y92.9 Unspecified place or not applicable